=== PATIENT | male | born 1990 | race African-American/Black ===

== ENCOUNTER 2016-12-11 10:44 | Emergency (ER) | payer SELFPAY ==
[~2016-12-11] VITALS: Ht 165.1 cm; Wt 54.4 kg
[~2016-12-11 10:44] MED LIST: VIBRAMYCIN 100100 MG PO
--- NOTE | 2016-12-11 10:48 | Emergency Room Report ---
History of Present Illness Time Seen by 104Alvin Presenting Problem in Triage Pt arrived:Walked Presenting Problem:PT C/O SHARP STABBING PAIN IN HIS CHEST THAT CAUSED HIM TO WAKE UP AN HOUR AGO. PT ADVISES HE HAS HAD A COUPLE OF EPISODES OF THIS OVER THE PAST WEEK BUT IT WAS WORSE THIS MORNING. 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 N Clinical Suspician of Infection? N Mental Status: 1 - Regular (Normal Baseline) Sepsis Risk:Low Sepsis Risk Have you (or family members/close friends) recently traveled outside the [place]? N If Yes, where/when: Have you had exposure to infectious disease within the past month? N TB? Other? Specify: Comment The patient complains of LEFT sided parasternal chest pain over the past week that comes and goes. It increases with deep breath and yawning. He does feel short of air. He feels hot and cold, but no documented fevers. No cough or hemoptysis. No leg pain or swelling. No history of heart or lung problems. Family history positive for coronary artery disease in his father. The patient uses cocaine, but not in the past couple of days. He says he smokes and snorts it, he denies any history of intravenous drug use. No medications taken at home for his symptoms. Pain is 8/10. ALLERGIES Coded Allergies: No Known Allergies (12/11/16) Home Medications Reported Medications No Known Home Medications History Medical History General Angina: No KS: No Hypertension? No Hyperlipidemia? No CHF? No COPD? No Asthma? No CVA? No Seizures? No Diabetes? No GB Disease: No MRSA? No TB? No Cancer? No Immunization Hx DT/Tetanus 5-10 YRS Surgical Hx Previous Surgery?Y BACK SX Social History Smoking Hx Packs/day < 1 Pack Alcohol Alcohol: Yes Review of Systems All Other Systems Reviewed and Negative Constitutional see HPI, chills Respiratory denies cough, shortness of breath Cardiovascular chest pain, denies edema Gastrointestinal denies nausea, denies vomiting Physical Exam Vital Signs Vital Signs Date Time Temp Pulse Resp B/P Pulse O2 O2 Flow FiO2 Ox Delivery Rate 12/11 1349 63 16 100/58 99 12/11 1307 58 20 109/66 98 12/11 1230 64 20 110/64 99 12/11 1110 20 12/11 1045 98.2 82 16 149/91 98 General Appearance normal appearance, WD/WN Eye Exam - bilateral eye normal exam, bilateral eye PERRL, bilateral eye EOMI Ear, Nose, Throat hearing grossly normal, normal ENT inspection Neck normal inspection, non-tender, supple, full range of motion Respiratory Status Yes: trachea midline, chest symmetrical, non tender chest. No: respiratory distress. Lung Sounds bilateral: normal breath sounds, lungs clear. Cardiovascular normal exam, regular rate/rhythm, no peripheral edema, no gallop, no JVD, no murmur, no rub, normal peripheral pulses Peripheral Pulses Pulses normal Yes Gastrointestinal normal bowel sounds, normal exam, non tender, soft, no organomegaly Back normal inspection, no CVA tenderness, no vertebral tenderness Extremities non-tender, normal range of motion, normal inspection, no calf tenderness, no pedal edema Neurologic alert, sex crimes detective II-XII nml as tested, normal exam, oriented x 3 Mental status anxious Skin intact, normal color, warm/dry Lymphatic no adenopathy Medical Decision Making LABS/Meds/Orders Pt receiving controlled substance in ED? Yes Rayshawn was queried for this patient? Yes Reference #: [id number] Comment 0 rxs. Results/Orders Laboratory Tests 12/11/16 1045: Sodium 136, Potassium 4.3, Chloride 101, Carbon Dioxide 29, BUN 9, Creatinine 1.0, Estimated Creat Clear 85, Estimated GFR (MDRD) 90, Glucose 89, Calcium 9.3, Total Bilirubin 0.4, AST 34, ALT 56, Alkaline Phosphatase 145 H, Creatine Kinase 278, CK-MB (CK-2) Rel Index 0.2, CK and CKMB Interp < 0.5, Troponin I < 0.02, Total Protein 9.2 H, Albumin 4.2, Globulin 5.0 H, Albumin/Globulin Ratio 0.8 L, D-Dimer 293, WBC 6.4, RBC 4.16 L, Hgb 13.8 L, Hct 41.4 L, MCV 99.5 H , RDW 12.7, Plt Count 368, MPV 7.3 L, Gran % 71.5, Gran # 4.6, Lymphocytes % 21.4, Monocytes % 3.3, Eosinophils % 3.1, Basophils % 0.7, Lymphocytes # 1.4, Monocytes # 0.2, Eosinophils # 0.2, Basophils # 0.0, PUBS MCHC 33.4, MCH 33.2 H Current Medication Orders Sig/David Start time Last Medication Dose Route Stop Time Status Admin Iopamidol 75 ML ONCE ONE 12/11 1345 UNV 12/11 IV 12/11 1346 1338 Sodium Chloride 10 ML ONCE ONE 12/11 1345 UNV 12/11 IV 12/11 1346 1338 Sodium Chloride 1,000 ML .Q1H1M 12/11 1315 AC IV 12/11 1415 Sodium Chloride 1,000 ML .STK-MED ONE 12/11 1313 DC IV Iopamidol 75 ML ONCE ONE 12/11 1230 DC 12/11 IV 12/11 1231 1218 Sodium Chloride 10 ML ONCE ONE 12/11 1230 DC 12/11 IV 12/11 1231 1218 Morphine Sulfate 4 MG ONCE ONE 12/11 1145 DC IV 12/11 1146 Ondansetron HCl 4 MG ONCE ONE 12/11 1145 DC IV 12/11 1146 Ketorolac 0 .STK-MED ONE 12/11 1101 DC Tromethamine .ROUTE Ketorolac 30 MG ONCE ONE 12/11 1100 DC 12/11 Tromethamine IV 12/11 1101 1110 Sodium Chloride 10 ML PRN PRN 12/11 1100 AC IV 12/12 1050 Orders Procedure Date/time Status DIET-NOTHING BY MOUTH 12/[address] CHEST W/PE PROTOCOL REQ 12/[address] CHEST SCAN REQ 12/11 1137 Complete D-DIMER 12/11 1055 Complete ELECTROCARDIOGRAM REQUEST 12/11 1050 Active IV SALINE LOCK 12/11 1050 Active URINALYSIS/COMPLETE 12/11 1050 Active DRUG ABUSE SCREEN (TRIAGE) 12/11 1050 Active CBC WITH AUTO DIFF 12/11 1050 Complete CARDIAC ENZYMES 12/11 1050 Complete CHEM 12 PROFILE 12/11 1050 Complete CM/EKG CM/EKG Comments EKG interpreted by Jaron Ley MD: Rhythm: sinus Rate: 84 [place]: normal Ectopy: none Conduction: normal ST Segment Changes: Early repolarization T Wave Changes: none Q Waves: none No evidence of acute ischemia or injury No prior EKGs available for comparison XRAY/CT/US XRAY/CT/US XRAY chest Comment X-ray interpreted by radiologist: Focal area of consolidation LEFT lung. I discussed this with Dr. Chamberlain. CT chest with contrast ordered. CT chest Comment CT scan interpreted by radiologist: Negative for PE. Consolidation in the lingular area. Progress - 11:40 AM: Rechecked and updated patient. Advised to CT scan. Pain is 7/10 after Toradol. He requests more pain medication. 1:10 PM: Case discussed with Dr. Chamberlain. CT scan raises the possibility of a pulmonary infarct. I feel we need to exclude a pulmonary embolism, and the CT that was done did not adequately image the peripheral pulmonary arteries. He recommends repeating the CT scan to get a CT angiogram of the more peripheral pulmonary arteries. He only received 75 mL of contrast and Dr. Chamberlain feels he can safely get another contrast bolus. The patient has normal renal function. He will be given a fluid bolus as well. Departure Departure Disposition DC Home or Self Care(routine) Clinical Impression Primary Impression: Pleuritic chest pain Secondary Impressions: Lung consolidation Condition STABLE Referrals NO REFERRAL Patient Instructions DI for Atypical Chest Pain, DI for Pleurisy Additional Instructions Additional instructions for CHEST PAIN: See your physician as soon as possible for further evaluation. Return immediately if worsening chest pain, vomiting, shortness of breath, fever, coughing of blood. Prescriptions Current Visit Scripts Azithromycin (Zithromycin (Z-JOSÉ) 250MG Tab) 250 MG PO DAILY #6 TAB TAKE TWO (2) TABLETS ON DAY 1, THEN ONE (1) TABLET DAY #2 THRU #5 Naproxen (Naprosyn 500MG Tab) 500 MG PO BID #14 TAB HYDROCODONE/ACETAMINOPHEN (Banks 5-325 Tablet) 1 TAB PO Q6HP PRN pain #10 TAB ED Critical Care Critical Care No at 1411
[2016-12-11 11:02] LABS: HEMOGLOBIN 13.8 g/dL (14.1-18.0); LYMPH # 1.4 K/mm3 (0.7-4.5); LYMPH % 21.4 % (10-50)
--- OUTSIDE RECORDS SUMMARY | 2016-12-11 11:12 | External Medical Summary Rpt ---
Demographics Preferred Language Cambodian Marital Status Unknown Moravian Affiliation Unknown Race Unknown Ethnic Group Unknown Author Author , Organization [employer] Address Unknown Phone Unavailable Purpose Continuity of Care Document - through 2016 Immunization No patient found.
--- OUTSIDE RECORDS SUMMARY | 2016-12-11 11:12 | External Medical Summary Rpt ---
Demographics Preferred Language Latvian Marital Status Unknown Sikh Affiliation Unknown Race Unknown Ethnic Group Unknown Author Author , Organization [employer] Address Unknown Phone Unavailable Purpose Continuity of Care Document - through 2016 Immunization No patient found.
--- OUTSIDE RECORDS SUMMARY | 2016-12-11 11:12 | External Medical Summary Rpt ---
Author Author , Organization [employer] Address Unknown Phone Unavailable Care Team Providers Care Ends Down Checker Name Role Phone [facility], Unavailable Unavailable [facility] Purpose Continuity of Care Document - 02-05-2014 through 2016 Problems Code Diagnosis DOS Provider Status Z202 CONTACT 10-12-2015 [facility] EXPOSURE INFECT SEXUAL MODE TRANSMS Z720 TOBACCO USE 10-12-2015 [facility] Results Labs Lab Lab Date Result Refere Interp Status Commen Order Detail nces retati t Range on SYPHILIS IGG TEST (EIA) (02-05-2014 08:00) Flight Service Specialist: Jaqui Molina MD [facility] Lab: [facility] Division of Laboratory Services Lab Address: [address] [place] [address], [address] [place], [place] [id number] 02-05-2014 8:00 am Specimen Collection Start Date/Time: Curtain Supervisor: Specimen Rcv'd 02-09-2014 7:54 am Date/Time: Ordering Physician: [facility] ([id number]) 02-09-2014 1:59 pm Results Rpt/Status Change Date/Time: This report contains patient information that must be protected in accordance with the Health Insurance Portability and Accountability Act. SYPHILI NON-EUNICE complet S IGG 014 CTIVE ed TEST 08:00 (EIA) CHART [id number] complet NUMBER 014 ed 08:00 SPECIME BLOOD complet N 014 ed SOURCE 08:00 PURPOSE DIAGNOS complet OF 014 TIC ed EXAM 08:00 ETHNICI NON ETH complet TY 014 ed 08:00 COLLECT NR complet OR 014 ed 08:00 CHLAMYDIA AND GONORRHEA TESTING (02-05-2014 08:00) Flight Service Specialist: Jaqui Molina MD [facility] Lab: [facility] Division of Laboratory Services Lab Address: [address] [place] [address], [facility] [address] [place] [address] 02-05-2014 8:00 am Specimen Collection Start Date/Time: Curtain Supervisor: Specimen Rcv'd 02-08-2014 2:51 pm Date/Time: Ordering Physician: [facility] ([id number]) 02-09-2014 9:21 am Results Rpt/Status Change Date/Time: This report contains patient information that must be protected in accordance with the Health Insurance Portability and Accountability Act. AMPLIFI POSITIV complet ED N 014 E ed GONORRH 08:00 OEAE TEST AMPLIFI NEGATIV complet ED 014 E ed CHLAMYD 08:00 IA TEST CHART [id number] complet NUMBER 014 ed 08:00 PREGNAN NO complet T 014 ed 08:00 SPECIME PHARYNG complet N 014 EAL ed SOURCE 08:00 REASON VOLUNTE complet FOR 014 ER/MEDI ed REQUEST 08:00 NURY PROBLEM SYMPTOM YES complet S 014 ed 08:00 KIT complet EXPIRAT 014 5 ed ION 08:00 DATE ETHNICI BLACK, complet TY 014 NON-HIS ed 08:00 PANIC COLLECT AZ complet OR 014 ed 08:00 CHLAMYDIA AND GONORRHEA TESTING (02-05-2014 08:00) Flight Service Specialist: Jaqui Molina MD [facility] Lab: [facility] Division of Laboratory Services Lab Address: [address] [place] [address], [address] [address] 02-05-2014 8:00 am Specimen Collection Start Date/Time: Curtain Supervisor: Specimen Rcv'd 02-08-2014 2:51 pm Date/Time: Ordering Physician: [facility] ([id number]) 02-09-2014 9:21 am Results Rpt/Status Change Date/Time: This report contains patient information that must be protected in accordance with the Health Insurance Portability and Accountability Act. SPECIME MALE complet N 014 URETHRA ed SOURCE 08:00 L Treponema pallidum IgG Ab [Presence] in Serum by Immunoassay (02-05-2014 08:00) Trepone NON-EUNICE complet ma 014 CTIVE ed pallidu 08:00 m IgG Ab [Presen ce] in Serum by Immunoa ssay CHLAMYDIA AND GONORRHEA TESTING (02-05-2014 08:00) Chlamyd NEGATIV complet ia 014 E ed trachom 08:00 atis rRNA [Presen ce] in Unspeci fied specime n by Probe & target amplifi cation method Neisser POSITIV complet ia 014 E ed gonorrh 08:00 oeae rRNA [Presen ce] in Unspeci fied specime n by Probe & target amplifi cation method Treponema pallidum IgG Ab [Presence] in Serum by Immunoassay (02-05-2014 08:00) COLLECT NR complet OR 014 ed 08:00 ETHNICI NON ETH complet TY 014 ed 08:00 PURPOSE DIAGNOS complet OF 014 TIC ed EXAM 08:00 SPECIME BLOOD complet N 014 ed SOURCE 08:00 CHART [id number] complet NUMBER 014 ed 08:00 Trepone Pending complet ma 014 ed pallidu 08:00 m IgG Ab [Presen ce] in Serum by Immunoa ssay CHLAMYDIA AND GONORRHEA TESTING (02-05-2014 08:00) SPECIME PHARYNG complet N 014 EAL ed SOURCE 08:00 CHLAMYDIA AND GONORRHEA TESTING (02-05-2014 08:00) COLLECT AZ complet OR 014 ed 08:00 ETHNICI BLACK, complet TY 014 NON-HIS ed 08:00 PANIC KIT complet EXPIRAT 014 5 ed ION 08:00 DATE SYMPTOM YES complet S 014 ed 08:00 REASON VOLUNTE complet FOR 014 ER/MEDI ed REQUEST 08:00 NURY PROBLEM SPECIME MALE complet N 014 URETHRA ed SOURCE 08:00 L PREGNAN NO complet T 014 ed 08:00 CHART [id number] complet NUMBER 014 ed 08:00 Chlamyd Pending complet ia 014 ed trachom 08:00 atis rRNA [Presen ce] in Unspeci fied specime n by Probe & target amplifi cation method Neisser Pending complet ia 014 ed gonorrh 08:00 oeae rRNA [Presen ce] in Unspeci fied specime n by Probe & target amplifi cation method Procedures Procedure DOS Code Location Performer Comment THERAPEUT [address] [facility] IC 6 Y Y PROPHYLAC [facility] TIC/DX INJECTION SUBQ/IM IADNA 16532 [facility] [place] Y Y [facility] GONORRHOE AE AMPLIFIED PROBE TQ ONDANSETR Q0162 [facility] ON 1 MG 6 Y Y ORL NOT [facility] EXCEED 48 HR DOSE REG IADNA 74037 [facility] CHLAMYDIA Y Y [facility] TRACHOMAT IS AMPLIFIED PROBE TQ URNLS DIP [address] [place] [address] Y Y STICK/TAB [facility] LET REAGENT AUTO MICROSCOP Y INJECTION J0696 [place] [address] Y Y CEFTRIAXO [facility] NE SODIUM PER 250 MG Encounters Encounter Start End Date Code Location Performer Type Date EMERGENCY [address] [place] [address] 6 Y [facility] T [facility] [place] [address] 6 Y [facility]
--- OUTSIDE RECORDS SUMMARY | 2016-12-11 11:12 | External Medical Summary Rpt ---
Author Author , Organization [employer] Address Unknown Phone Unavailable Care Team Providers Care Plant Protection Officer Name Role Phone [facility], Unavailable Unavailable [facility] Purpose Continuity of Care Document - 02-05-2014 through 2016 Problems Code Diagnosis DOS Provider Status Z202 CONTACT 10-12-2015 [facility] EXPOSURE INFECT SEXUAL MODE TRANSMS Z720 TOBACCO USE 10-12-2015 [facility] Results Labs Lab Lab Date Result Refere Interp Status Commen Order Detail nces retati t Range on SYPHILIS IGG TEST (EIA) (02-05-2014 08:00) Supervisor Tank Cleaning: Jaqui Molina MD [facility] Lab: [facility] Division of Laboratory Services Lab Address: [address] [place] [address], [address] [place], [place] [id number] 02-05-2014 8:00 am Specimen Collection Start Date/Time: Aerospace Quality Engineer: Specimen Rcv'd 02-09-2014 7:54 am Date/Time: Ordering Physician: [facility] ([id number]) 02-09-2014 1:59 pm Results Rpt/Status Change Date/Time: This report contains patient information that must be protected in accordance with the Health Insurance Portability and Accountability Act. SYPHILI NON-EUNICE complet S IGG 014 CTIVE ed TEST 08:00 (EIA) CHART [id number] complet NUMBER 014 ed 08:00 SPECIME BLOOD complet N 014 ed SOURCE 08:00 PURPOSE DIAGNOS complet OF 014 TIC ed EXAM 08:00 ETHNICI NON ETH complet TY 014 ed 08:00 COLLECT NR complet OR 014 ed 08:00 CHLAMYDIA AND GONORRHEA TESTING (02-05-2014 08:00) Supervisor Tank Cleaning: Jaqui Molina MD [facility] Lab: [facility] Division of Laboratory Services Lab Address: [address] [place] [address], [facility] [address] [place] [address] 02-05-2014 8:00 am Specimen Collection Start Date/Time: Aerospace Quality Engineer: Specimen Rcv'd 02-08-2014 2:51 pm Date/Time: Ordering Physician: [facility] ([id number]) 02-09-2014 9:21 am Results Rpt/Status Change Date/Time: This report contains patient information that must be protected in accordance with the Health Insurance Portability and Accountability Act. AMPLIFI POSITIV complet ED N 014 E ed GONORRH 08:00 OEAE TEST AMPLIFI NEGATIV complet ED 014 E ed CHLAMYD 08:00 IA TEST CHART [id number] complet NUMBER 014 ed 08:00 PREGNAN NO complet T 014 ed 08:00 SPECIME PHARYNG complet N 014 EAL ed SOURCE 08:00 REASON VOLUNTE complet FOR 014 ER/MEDI ed REQUEST 08:00 UNRY PROBLEM SYMPTOM YES complet S 014 ed 08:00 KIT complet EXPIRAT 014 5 ed ION 08:00 DATE ETHNICI BLACK, complet TY 014 NON-HIS ed 08:00 PANIC COLLECT AZ complet OR 014 ed 08:00 CHLAMYDIA AND GONORRHEA TESTING (02-05-2014 08:00) Supervisor Tank Cleaning: Jaqui Molina MD [facility] Lab: [facility] Division of Laboratory Services Lab Address: [address] [place] [address], [address] [address] 02-05-2014 8:00 am Specimen Collection Start Date/Time: Aerospace Quality Engineer: Specimen Rcv'd 02-08-2014 2:51 pm Date/Time: Ordering Physician: [facility] ([id number]) 02-09-2014 9:21 am Results Rpt/Status Change Date/Time: [...] complet N 014 ed SOURCE 08:00 CHART [id number] complet NUMBER 014 ed 08:00 Trepone Pending [...] NO complet T 014 ed 08:00 CHART [id number] complet NUMBER 014 ed 08:00 Chlamyd Pending complet ia 014 ed trachom 08:00 atis rRNA [Presen ce] in Unspeci fied specime n by Probe & target amplifi cation method Neisser Pending complet ia 014 ed gonorrh 08:00 oeae rRNA [Presen ce] in Unspeci fied specime n by Probe & target amplifi cation method Procedures Procedure DOS Code Location Performer Comment THERAPEUT 21558 [facility] IC 6 Y Y PROPHYLAC [facility] TIC/DX INJECTION SUBQ/IM IADNA 02852 [facility] [place] Y Y [facility] GONORRHOE AE AMPLIFIED PROBE TQ ONDANSETR Q0162 [facility] ON 1 MG 6 Y Y ORL NOT [facility] EXCEED 48 HR DOSE REG IADNA 08367 [facility] CHLAMYDIA Y Y [facility] TRACHOMAT IS AMPLIFIED PROBE TQ URNLS DIP [address] [place] [address] Y Y STICK/TAB [facility] LET REAGENT AUTO MICROSCOP Y INJECTION J0696 [place] [address] Y Y CEFTRIAXO [facility] NE SODIUM PER 250 MG Encounters Encounter Start End Date Code Location Performer Type Date EMERGENCY [address] [place] [address] 6 Y [facility] T VISIT [facility] [place] [address] [facility]
--- OUTSIDE RECORDS SUMMARY | 2016-12-11 11:12 | External Medical Summary Rpt ---
Author Author , Organization [employer] Address Unknown Phone Unavailable Care Team Providers Care Polymerization Engineer Name Role Phone [facility], Unavailable Unavailable [facility] Purpose Continuity of Care Document - 10-12-2015 through 2016 Problems Code Diagnosis DOS Provider Status Z202 CONTACT 10-12-2015 [facility] EXPOSURE INFECT SEXUAL MODE TRANSMS Z720 TOBACCO USE 10-12-2015 [facility] Procedures Procedure DOS Code Location Performer Comment THERAPEUT [address] [facility] IC 6 Y Y PROPHYLAC [facility] TIC/DX INJECTION SUBQ/IM IADNA [address] [facility] CHLAMYDIA 6 Y Y [facility] TRACHOMAT IS AMPLIFIED PROBE TQ ONDANSETR Q[address] [facility] ON 1 MG 6 Y Y ORL [facility] EXCEED 48 HR DOSE REG INJECTION J0696 [facility] 6 Y Y CEFTRIAXO [facility] NE SODIUM PER 250 MG URNLS DIP 84235 [place] [address] Y STICK/TAB [facility] LET REAGENT AUTO MICROSCOP Y IADNA [address] [facility] NEISSERIA 6 Y Y [facility] GONORRHOE AE AMPLIFIED PROBE TQ Encounters Encounter Start End Date Code Location Performer Type Date H[place]PITAL [place] [address] [address] [facility] EM[facility]ENCY [address] [place] [address] 6 Y [facility] T VISIT MODERATE SEVERITY
--- OUTSIDE RECORDS SUMMARY | 2016-12-11 11:12 | External Medical Summary Rpt ---
Author Author , Organization [employer] Address Unknown Phone Unavailable Care Team Providers Care Supervisor Carding Name Role Phone [facility], Unavailable Unavailable [facility] Purpose Continuity of Care Document - 10-12-2015 through 2016 Problems Code Diagnosis DOS Provider Status Z202 CONTACT 10-12-2015 [facility] EXPOSURE INFECT SEXUAL MODE TRANSMS Z720 TOBACCO USE 10-12-2015 [facility] Procedures Procedure DOS Code Location Performer Comment THERAPEUT 09130 [facility] IC 6 Y Y PROPHYLAC [facility] TIC/DX INJECTION SUBQ/IM IADNA 72203 [facility] CHLAMYDIA 6 Y Y [facility] TRACHOMAT IS AMPLIFIED PROBE TQ ONDANSETR Q0162 [facility] ON 1 MG 6 Y Y ORL [facility] EXCEED 48 HR DOSE REG INJECTION J0696 [facility] 6 Y Y CEFTRIAXO [facility] NE SODIUM PER 250 MG URNLS DIP [address] [place] [address] Y STICK/TAB [facility] LET REAGENT AUTO MICROSCOP Y IADNA 25458 [facility] [place] 6 Y Y [facility] GONORRHOE AE AMPLIFIED PROBE TQ Encounters Encounter Start End Date Code Location Performer Type Date HOSPITAL [place] [address] 6 Y [facility] EM[facility] [address] [place] [address] 6 Y [facility] T VISIT MODERATE SEVERITY
--- OUTSIDE RECORDS SUMMARY | 2016-12-11 11:13 | External Medical Summary Rpt ---
Author Author MARCOS Pereira, MARCOS [employer] Organization [employer] Address Unknown Phone Unavailable Results Treponema pallidum IgG Ab [Presence] in Serum by Immunoassay Observa Value Referen Units Interpr Notes Date tion ce etation Range COLLECT NR No No No No Feb 05 OR informa informa informa informa 2014 tion in tion in tion in tion in 8:00 AM source source source source data data data data ETHNICI NON ETH No No No No Feb 05 TY informa informa informa informa 2014 tion in tion in tion in tion in 8:00 AM source source source source data data data data PURPOSE DIAGNOS No No No No Feb 05 OF TIC informa informa informa informa 2014 EXAM tion in tion in tion in tion in 8:00 AM source source source source data data data data SPECIME BLOOD No No No No Feb 05 N informa informa informa informa 2014 SOURCE tion in tion in tion in tion in 8:00 AM source source source source data data data data CHART [id number] No No No No Feb 05 NUMBER informa informa informa informa 2014 tion in tion in tion in tion in 8:00 AM source source source source data data data data Trepone NON-EUNICE No No No METHOD Feb [address] informa informa informa OF 2014 pallidu tion in tion in tion in ANALYSI 8:00 AM m IgG source source source S: Ab data data data EIANORM [Presen AL ce] in RANGE: Serum NON-EUNICE by CTIVE\. Immunoa br\This ssay report contain s patient informa tion that must be protect ed in accorda nce with the Health Insuran ce Portabi lity and Account ability Act. CHLAMYDIA AND GONORRHEA TESTING Observa Value Referen Units Interpr Notes Date tion ce etation Range COLLECT AZ No No No No Feb 05 OR informa informa informa informa 2014 tion in tion in tion in tion in 8:00 AM source source source source data data data data ETHNICI BLACK, No No No No Feb 05 TY NON-HIS informa informa informa informa 2014 PANIC tion in tion in tion in tion in 8:00 AM source source source source data data data data KIT 08-07-1 No No No No Feb 05 EXPIRAT 5 informa informa informa informa 2014 ION tion in tion in tion in tion in 8:00 AM DATE source source source source data data data data SYMPTOM YES No No No No Feb 05 S informa informa informa informa 2014 tion in tion in tion in tion in 8:00 AM source source source source data data data data REASON VOLUNTE No No No No Feb 05 FOR ER/MEDI informa informa informa informa 2014 REQUEST NURY tion in tion in tion in tion in 8:00 AM PROBLEM source source source source data data data data SPECIME PHARYNG No No No No Feb 05 N EAL informa informa informa informa 2014 SOURCE tion in tion in tion in tion in 8:00 AM source source source source data data data data PREGNAN NO No No No No Feb 05 T informa informa informa informa 2014 tion in tion in tion in tion in 8:00 AM source source source source data data data data CHART [id number] No No No No Feb 05 NUMBER informa informa informa informa 2014 tion in tion in tion in tion in 8:00 AM source source source source data data data data Chlamyd NEGATIV No No No NEGATIV Feb 05 ia E informa informa informa E 2014 trachom tion in tion in tion in RESULT= 8:00 AM atis source source source WITHIN rRNA data data data NORMAL [Presen ce] in LIMITSP Unspeci OSITIVE fied specime RESULT= n by Probe & ABNORMA target LEQUIVO NURY amplifi RESULT= cation method INDETER MINATEU NSATISF ACTORY RESULT= INVALID Neisser POSITIV No No No NEGATIV Feb 05 ia E informa informa informa E 2014 gonorrh tion in tion in tion in RESULT= 8:00 AM oeae source source source WITHIN rRNA data data data NORMAL [Presen ce] in LIMITSP Unspeci OSITIVE fied specime RESULT= n by Probe & ABNORMA target LEQUIVO NURY amplifi RESULT= cation method INDETER MINATEU NSATISF ACTORY RESULT= INVALID THE APTIMA COMBO 2 ASSAY IS NOT INTENDE D FOR THE EVALUAT ION OF SUSPECT EDSEXUA L ABUSE OR FOR OTHER MEDICO- LEGAL INDICAT IONS. FOR THOSE PATIENT S FORWHOM A FALSE POSITIV E RESULT MAY HAVE ADVERSE PSYCHO- SOCIAL IMPACT, THE [facility] MMENDS RETESTI NG. REMARKS No No No No RECTAL Feb 05 informa informa informa informa AND 2013 tion in tion in tion in tion in PHARYNG 8:00 AM source source source source EAL data data data data SPECIME NS HAVE BEENVAL IDATED BY THE [employer]ESH [employer] OF [employer]. THEY HAVE NOT BEEN CLEARED ORAPPRO ERIN BY THE FDA. THE FDA HAD DETERMI NEDTHAT SUCH CLEARAN CE OR APPROVA L IS NOTNECE SSARY. THIS TEST IS USED FOR [facility].\.br \This report contain s patient informa tion that must be protect ed in accorda nce with the Health Insuran ce Portabi lity and Account ability Act. CHLAMYDIA AND GONORRHEA TESTING Observa Value Referen Units Interpr Notes Date tion ce etation Range COLLECT AZ No No No No Feb 05 OR informa informa informa informa 2014 tion in tion in tion in tion in 8:00 AM source source source source data data data data ETHNICI BLACK, No No No No Feb 05 TY NON-HIS informa informa informa informa 2014 PANIC tion in tion in tion in tion in 8:00 AM source source source source data data data data KIT No No No No Feb 05 EXPIRAT 5 informa informa informa informa 2014 ION tion in tion in tion in tion in 8:00 AM DATE source source source source data data data data SYMPTOM YES No No No No Feb 05 S informa informa informa informa 2014 tion in tion in tion in tion in 8:00 AM source source source source data data data data REASON VOLUNTE No No No No Feb 05 FOR ER/MEDI informa informa informa informa 2014 REQUEST NURY tion in tion in tion in tion in 8:00 AM PROBLEM source source source source data data data data SPECIME MALE No No No No Feb 05 N URETHRA informa informa informa informa 2014 SOURCE L tion in tion in tion in tion in 8:00 AM source source source source data data data data PREGNAN NO No No No No Feb 05 T informa informa informa informa 2014 tion in tion in tion in tion in 8:00 AM source source source source data data data data CHART [id number] No No No No Feb 05 NUMBER informa informa informa informa 2014 tion in tion in tion in tion in 8:00 AM source source source source data data data data Chlamyd NEGATIV No No No NEGATIV Feb 05 ia E informa informa informa E 2014 trachom tion in tion in tion in RESULT= 8:00 AM atis source source source WITHIN rRNA data data data NORMAL [Presen ce] in LIMITSP Unspeci OSITIVE fied specime RESULT= n by Probe & ABNORMA target LEQUIVO NURY amplifi RESULT= cation method INDETER MINATEU NSATISF ACTORY RESULT= INVALID Neisser POSITIV No No No NEGATIV Feb 05 ia E informa informa informa E 2014 gonorrh tion in tion in tion in RESULT= 8:00 AM oeae source source source WITHIN rRNA data data data NORMAL [Presen ce] in LIMITSP Unspeci OSITIVE fied specime RESULT= n by Probe & ABNORMA target LEQUIVO NURY amplifi RESULT= cation method INDETER MINATEU NSATISF ACTORY RESULT= INVALID THE APTIMA COMBO 2 ASSAY IS NOT INTENDE D FOR THE EVALUAT ION OF SUSPECT EDSEXUA L ABUSE OR FOR OTHER MEDICO- LEGAL INDICAT IONS. FOR THOSE PATIENT S FORWHOM A FALSE POSITIV E RESULT MAY HAVE ADVERSE PSYCHO- SOCIAL IMPACT, THE [facility] RETESTI NG.\.br \This report contain s patient informa tion that must be protect ed in accorda nce with the Health Insuran ce Portabi lity and Account ability Act. CHLAMYDIA AND GONORRHEA TESTING Observa Value Referen Units Interpr Notes Date tion ce etation Range COLLECT AZ No No No No Feb 05 OR informa informa informa informa 2014 tion in tion in tion in tion in 8:00 AM source source source source data data data data ETHNICI BLACK, No No No No Feb 05 TY NON-HIS informa informa informa informa 2014 PANIC tion in tion in tion in tion in 8:00 AM source source source source data data data data KIT 08-07- No No No No Feb 05 EXPIRAT 5 informa informa informa informa 2014 ION tion in tion in tion in tion in 8:00 AM DATE source source source source data data data data SYMPTOM YES No No No No Feb 05 S informa informa informa informa 2014 tion in tion in tion in tion in 8:00 AM source source source source data data data data REASON VOLUNTE No No No No Feb 05 FOR ER/MEDI informa informa informa informa 2014 REQUEST NURY tion in tion in tion in tion in 8:00 AM PROBLEM source source source source data data data data SPECIME PHARYNG No No No No Feb 05 N EAL informa informa informa informa 2014 SOURCE tion in tion in tion in tion in 8:00 AM source source source source data data data data PREGNAN NO No No No No Feb 05 T informa informa informa informa 2014 tion in tion in tion in tion in 8:00 AM source source source source data data data data CHART [id number] No No No No Feb 05 NUMBER informa informa informa informa 2014 tion in tion in tion in tion in 8:00 AM source source source source data data data data Chlamyd Pending No No No No Feb 05 ia informa informa informa informa 2014 trachom tion in tion in tion in tion in 8:00 AM atis source source source source rRNA data data data data [Presen ce] in Unspeci fied specime n by Probe & target amplifi cation method Neisser Pending No No No No Feb 05 ia informa informa informa informa 2014 gonorrh tion in tion in tion in tion in 8:00 AM oeae source source source source rRNA data data data data [Presen ce] in Unspeci fied specime n by Probe & target amplifi cation method REMARKS No No No No RECTAL Feb 05 informa informa informa informa AND 2014 tion in tion in tion in tion in PHARYNG 8:00 AM source source source source EAL data data data data SPECIME NS HAVE BEENVAL IDATED BY THE [employer]ESH [employer] OF [employer]. THEY HAVE NOT BEEN CLEARED ORAPPRO ERIN BY THE FDA. THE FDA HAD DETERMI NEDTHAT SUCH CLEARAN CE OR APPROVA L IS NOTNECE SSARY. THIS TEST IS USED FOR [facility].\.br \This report contain s patient informa tion that [facility] with the Health Ins[employer] ce Portabi lity and Account ability Act. Treponema pallidum IgG Ab [Presence] in Serum by Immunoassay Observa Value Referen Units Interpr Notes Date tion ce etation Range COLLECT NR No No No No Feb 05 OR informa informa informa informa 2014 tion in tion in tion in tion in 8:00 AM source source source source data data data data ETHNICI NON ETH No No No No Feb 05 TY informa informa informa informa 2014 tion in tion in tion in tion in 8:00 AM source source source source data data data data PURPOSE DIAGNOS No No No No Feb 05 OF TIC informa informa informa informa 2014 EXAM tion in tion in tion in tion in 8:00 AM source source source source data data data data SPECIME BLOOD No No No No Feb 05 N informa informa informa informa 2014 SOURCE tion in tion in tion in tion in 8:00 AM source source source source data data data data CHART [id number] No No No No Feb 05 NUMBER informa informa informa informa 2014 tion in tion in tion in tion in 8:00 AM source source source source data data data data Trepone Pending No No No \.br\Feb 05 ma informa informa informa is 2014 pallidu tion in tion in tion in report 8:00 AM m IgG source source source contain Ab data data data s [Presen patient ce] in Serum informa by tion Immunoa that [facility]say [facility] with the Health Ins[employer] ce Portabi lity and Account ability Act. CHLAMYDIA AND GONORRHEA TESTING Observa Value Referen Units Interpr Notes Date tion ce etation Range COLLECT AZ No No No No Feb 05 OR informa informa informa informa 2014 tion in tion in tion in tion in 8:00 AM source source source source data data data data ETHNICI BLACK, No No No No Feb 05 TY NON-HIS informa informa informa informa 2014 PANIC tion in tion in tion in tion in 8:00 AM source source source source data data data data KIT 08-07-1 No No No No Feb 05 EXPIRAT 5 informa informa informa informa 2014 ION tion in tion in tion in tion in 8:00 AM DATE source source source source data data data data SYMPTOM YES No No No No Feb 05 S informa informa informa informa 2014 tion in tion in tion in tion in 8:00 AM source source source source data data data data REASON VOLUNTE No No No No Feb 05 FOR ER/MEDI informa informa informa informa 2014 REQUEST NURY tion in tion in tion in tion in 8:00 AM PROBLEM source source source source data data data data SPECIME PHARYNG No No No No Feb 05 N EAL informa informa informa informa 2014 SOURCE tion in tion in tion in tion in 8:00 AM source source source source data data data data PREGNAN NO No No No No Feb 05 T informa informa informa informa 2014 tion in tion in tion in tion in 8:00 AM source source source source data data data data CHART [id number] No No No No Feb 05 NUMBER informa informa informa informa 2014 tion in tion in tion in tion in 8:00 AM source source source source data data data data Chlamyd Pending No No No No Feb 05 ia informa informa informa informa 2014 trachom tion in tion in tion in tion in 8:00 AM atis source source source source rRNA data data data data [Presen ce] in Unspeci fied specime n by Probe & target amplifi cation method Neisser Pending No No No \.br\Feb 05 ia informa informa informa is 2014 gonorrh tion in tion in tion in report 8:00 AM oeae source source source contain rRNA data data data s [Presen patient ce] in Unspeci informa fied tion specime that n by must be Probe & target protect ed in amplifi accorda cation nce method with the Health Insuran ce Portabi lity and Account ability Act. CHLAMYDIA AND GONORRHEA TESTING Observa Value Referen Units Interpr Notes Date tion ce etation Range COLLECT AZ No No No No Feb 05 OR informa informa informa informa 2014 tion in tion in tion in tion in 8:00 AM source source source source data data data data ETHNICI BLACK, No No No No Feb 05 TY NON-HIS informa informa informa informa 2014 PANIC tion in tion in tion in tion in 8:00 AM source source source source data data data data KIT No No No No Feb 05 EXPIRAT 5 informa informa informa informa 2014 ION tion in tion in tion in tion in 8:00 AM DATE source source source source data data data data SYMPTOM YES No No No No Feb 05 S informa informa informa informa 2014 tion in tion in tion in tion in 8:00 AM source source source source data data data data REASON VOLUNTE No No No No Feb 05 FOR ER/MEDI informa informa informa informa 2014 REQUEST NURY tion in tion in tion in tion in 8:00 AM PROBLEM source source source source data data data data SPECIME MALE No No No No Feb 05 N URETHRA informa informa informa informa 2014 SOURCE L tion in tion in tion in tion in 8:00 AM source source source source data data data data PREGNAN NO No No No No Feb 05 T informa informa informa informa 2014 tion in tion in tion in tion in 8:00 AM source source source source data data data data CHART [id number] No No No No Feb 05 NUMBER informa informa informa informa 2014 tion in tion in tion in tion in 8:00 AM source source source source data data data data Chlamyd Pending No No No No Feb 05 ia informa informa informa informa 2014 trachom tion in tion in tion in tion in 8:00 AM atis source source source source rRNA data data data data [Presen ce] in Unspeci fied specime n by Probe & target amplifi cation method Neisser Pending No No No \.br\Feb 05 ia informa informa informa is 2014 gonorrh tion in tion in tion in report 8:00 AM oeae source source source contain rRNA data data data s [Presen patient ce] in Unspeci informa fied tion specime that n by must be Probe & target protect ed in amplifi accorda cation nce method with the Health Insuran ce Portabi lity and Account ability Act.
--- OUTSIDE RECORDS SUMMARY | 2016-12-11 11:13 | External Medical Summary Rpt ---
[...] source source data data data data CHART [id number] No No No No Feb 05 NUMBER [...] source source data data data data CHART [id number] No No No No Feb 05 NUMBER [...] MAY HAVE ADVERSE PSYCHO- SOCIAL IMPACT, [facility]. REMARKS No No No No RECTAL Feb 05 informa informa informa informa AND 2013 tion in tion in tion in tion in PHARYNG 8:00 AM source source source source EAL data data data data SPECIME NS HAVE BEENVAL IDATED BY THE [employer] OF [employer]. THEY HAVE NOT BEEN CLEARED ORAPPRO ERIN [...] source source data data data data CHART [id number] No No No No Feb 05 NUMBER [...] source source data data data data CHART [id number] No No No No Feb 05 NUMBER [...] BEENVAL IDATED BY THE JAYESH Randhawa OF [employer]. THEY HAVE NOT BEEN CLEARED ORAPPRO ERIN BY THE FDA. THE FDA HAD DETERMI NEDTHAT SUCH CLEARAN CE OR APPROVA L IS NOTNECE SSARY. THIS TEST IS USED FOR [facility].\.br \This report contain s patient informa tion that must be [facility] ed [facility] with the [facility] Insuran ce Portabi lity [...] source source data data data data CHART [id number] No No No No Feb 05 NUMBER [...] that ssay must be protect ed in [facility] with the [facility] Insuran ce Portabi lity [...] source source data data data data CHART [id number] No No No No Feb 05 NUMBER [...] source source data data data data CHART [id number] No No No No Feb 05 NUMBER [...]
[2016-12-11 11:23] LABS: BUN 9 mg/dL (7-18)
[2016-12-11 11:24] LABS: GFR (ESTIMATED) 90 ML/MIN (>60)
--- NOTE | 2016-12-11 11:29 | RADIOLOGY REPORT PS360 ---
CHEST(2 VIEWS-NOT PORTABLE) HISTORY: CHEST PAIN ORDERING PHYSICIAN: Jaron Ley MD PATIENT AGE: 26 years COMPARISON: None available FINDINGS: The cardiomediastinal silhouette and pulmonary vascularity are within normal limits. There is focal increased density in the left lower lung zone overlying the fifth interspace anteriorly measuring proximally 2.6 cm. This may be due to an area of focal consolidation from pneumonia. Cannot the possibility of a more ominous lesion however would be less likely in this age group. Follow-up recommended. The remaining lungs are clear. No effusions. IMPRESSION: Parenchymal density left lower lobe which may be due to an area of pneumonia. Recommend follow until clear
--- NOTE | 2016-12-11 12:29 | RADIOLOGY REPORT PS360 ---
CT CHEST W/ CONTRAST INDICATION: ABNORMAL CXR,CHEST PAIN ORDERING PHYSICIAN: Jaron Ley MD PATIENT AGE: 26 years COMPARISON: Radiograph of the same day TECHNIQUE: Axial images are obtained with contrast. Sagittal and coronal reformatted images are reviewed as well. FINDINGS: There is some residual soft tissue density in the anterior mediastinum likely related to residual finding tissue. No mediastinal or hilar adenopathy. Normal heart size. There is no evidence of aortic aneurysm. The study was not tailored for the pulmonary arteries however no large central embolus is evident. There is some minimal biapical pleural thickening. 3 mm subpleural nodules present in the right upper lobe laterally. 2 mm nodular opacity is present in the right upper lobe laterally. 4 mm nodular opacity right middle lobe noncalcified. There is patchy area of opacification in the anterior aspect of the right lower lobe in the perihilar region 3 mm nodular opacity right lower lobe centrally. There is dense consolidation within the inferior aspect of the lingula measuring up to 3.7 cm transverse 1.6 cm AP and extending cephalad to caudad for a length of approximately 6.5 cm. There is less dense consolidation involving the lingula posterior to this region in the inferior segment of the lingula. There is some minimal nodularity in the superior segment of the lingula as well. No pleural effusions. No other significant anomalies are evident. IMPRESSION: 1. Dense peripheral consolidation involves the inferior segment of the lingula most prominent in the subpleural region corresponding to the radiographic abnormality. Differential diagnosis includes pneumonia versus infarction. Neoplasm felt to be less likely in this age group but not entirely excluded. Suggest follow until clear 2. There are a few scattered small nodular opacities in both lungs which are nonspecific probably inflammatory/infectious
--- NOTE | 2016-12-11 14:01 | RADIOLOGY REPORT PS360 ---
CTA-CHEST HISTORY: Chest pain, abnormal chest x-ray and chest CT, possible infarction on chest CT ? infarct on ct chest ORDERING PHYSICIAN: Jaron Ley MD PATIENT AGE: 26 years TECHNIQUE: Helical acquisition obtained following the bolus administration of 60 mL of Isovue 370 followed by a saline bolus. Axial, sagittal, and coronal reformatted images are generated and reviewed. COMPARISON: CT chest same day FINDINGS: There is no evidence of pulmonary embolus, aortic aneurysm, or aortic dissection. Specifically, there is no evidence of embolus within the lingular branch of the left upper lobe pulmonary artery. No change in the peripheral consolidation within the inferior segment of the lingula laterally. No new changes evident from the previous exam of the same day. IMPRESSION: Negative for pulmonary embolus. No change consolidation within the inferior lingular segment peripherally
[2016-12-11] MEDS ORDERED: NAPROSYN500 M1 PO (14:11)
[2016-12-11] MEDS ORDERED: ZITHROMAX Z PA250 MG PO (14:11)
[2016-12-11] MEDS ORDERED: NORCO 325 MG-51 TAB PO (14:11)
[2016-12-11 14:18] VITALS: BP 129/77
== END 2016-12-11 14:20 | disposition home or self-care (01) ==
LOC: ER 10:44
PROVIDERS: Emergency Medicine
DX: R07.89 Other chest pain (principal)
CPT/HCPCS: Q9967